=== PATIENT | male | born 2000 | race Caucasian/White ===

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

== ENCOUNTER 2020-05-11 00:53 | Emergency (ER) | payer OTHER ==
[2020-05-11 01:07] VITALS: BP 131/72; PULSE 94; TEMP 99.2; BMI 29.1
== END 2020-05-11 02:23 | disposition home or self-care (01) ==
LOC: JER 00:53
DX: L66.2 Folliculitis decalvans (principal)
CPT/HCPCS: 99284-25

== ENCOUNTER 2020-09-17 17:42 | Emergency (ER) | payer OTHER ==
[2020-09-17 18:00] VITALS: BP 116/67; PULSE 75; TEMP 98.8; BMI 26.3
[2020-09-17 19:10] LABS: BASO % 0.4 % (0-2.0); EOS % 4.9 % (0-4.5); HEMATOCRIT 53.1 % (35.4-49); LYMPH % 22.7 % (8-40); MCH 31.7 pg (25.7-33.7); MCHC 33.9 g/dl (32.0-35.9); MEAN CELL VOLUME 93.7 fl (80-96); MEAN PLT VOLUME 7.8 fl (7.5-11.1); MONO % 5.4 % (3.8-10.2); NEUT % 66.6 % (42.8-82.8); PLATELET COUNT 289 K/MM3 (134-434); RBC 5.67 M/mm3 (4.00-5.60); WHITE BLOOD COUNT 10.3 K/mm3 (4.0-10.0)
[2020-09-17 19:29] LABS: CHLORIDE 104 mmol/L (98-107); POTASSIUM 3.8 mmol/L (3.5-5.1); SODIUM 139 mmol/L (136-145)
[2020-09-17 19:32] LABS: ALBUMIN 4.8 g/dl (3.4-5.0); ANION GAP 6 MMOL/L (8-16); BLOOD UREA NITROGEN 14.8 mg/dL (7-18); CALCIUM 10.3 mg/dL (8.5-10.1); CO2 29 mmol/L (21-32); GLUCOSE,RANDOM 85 mg/dL (74-106)
[2020-09-17 19:34] LABS: SGPT/ALT 46 U/L (13-61)
[2020-09-17 19:36] LABS: CREATININE 0.9 mg/dL (0.55-1.3); SGOT/AST 22 U/L (15-37)
[2020-09-17 19:37] LABS: BILIRUBIN,TOTAL 0.7 mg/dL (0.2-1); TOT PROT 7.6 g/dl (6.4-8.2)
[2020-09-17 19:38] LABS: ALK PHOS 89 U/L (45-117)
== END 2020-09-17 20:52 | disposition home or self-care (01) ==
LOC: JER 17:42
DX: R07.9 Chest pain, unspecified (principal)
CPT/HCPCS: 36415; 71046-TC-FY; 80053; 82550; 84484; 85025; 93005; 93010; 99284-25; C9803; U0003; U0005

== ENCOUNTER 2020-12-02 12:34 | Emergency (ER) | payer OTHER ==
[2020-12-02 12:40] VITALS: BP 116/72; PULSE 88; TEMP 98.1; BMI 25.0
[2020-12-02] MEDS ORDERED: KETOROLAC TROMETHAMINE 60 MG/2 ML VIAL IVPB ONE (13:36)
[2020-12-02] MEDS ORDERED: ACETAMINOPHEN 1000 MG/100 ML VIAL (NON FORMULARY) IVPB ONE (13:36)
[2020-12-02] MEDS ORDERED: METOCLOPRAMIDE HCL INJECTION 10 MG/2 ML VIAL IVPB ONE (13:36)
[2020-12-02] MEDS ORDERED: SODIUM CHLORIDE 1,000 ML IV STA (13:36)
[2020-12-02] MEDS ORDERED: METOCLOPRAMIDE HCL INJECTION 10 MG/2 ML VIAL ONE (13:54)
[2020-12-02] MEDS ORDERED: KETOROLAC TROMETHAMINE 30 MG/1 ML VIAL ONE (13:54)
[2020-12-02] MEDS ORDERED: METHOCARBAMOL 500 MG TABLET PO ONE (15:23)
[2020-12-02] MEDS ORDERED: LIDOCAINE 5% TOPICAL PATCH TP ONE (15:26)
[2020-12-02] MEDS ORDERED: LIDOCAINE 5% TOPICAL PATCH ONE (15:28)
[2020-12-02] MEDS ORDERED: METHOCARBAMOL 500 MG TABLET ONE (15:28)
== END 2020-12-02 17:25 | disposition home or self-care (01) ==
LOC: JERFT 12:34
PROC: 3E033NZ Introduction of Analgesics, Hypnotics, Sedatives into Peripheral Vein, Percutaneous Approach (ICD-10-PCS; principal; 2020-12-02)
PROC: 3E033GC Introduction of Other Therapeutic Substance into Peripheral Vein, Percutaneous Approach (ICD-10-PCS; 2020-12-02)
PROC: 3E0333Z Introduction of Anti-inflammatory into Peripheral Vein, Percutaneous Approach (ICD-10-PCS; 2020-12-02)
PROC: 3E0337Z Introduction of Electrolytic and Water Balance Substance into Peripheral Vein, Percutaneous Approach (ICD-10-PCS; 2020-12-02)
DX: R51.9 Headache, unspecified (principal)
CPT/HCPCS: 99285-25; J0131

== ENCOUNTER 2021-08-16 22:43 | Emergency (ER) | payer OTHER ==
[2021-08-16 22:50] VITALS: BP 127/67; PULSE 84; TEMP 97.9; BMI 26.1
== END 2021-08-17 | disposition home or self-care (01) ==
LOC: JER 22:43
DX: L01.00 Impetigo, unspecified (principal)
CPT/HCPCS: 87070; 87186; 87205; 99281-25

== ENCOUNTER 2022-03-28 12:59 | Emergency (ER) | payer OTHER ==
[2022-03-28 13:09] VITALS: BP 111/66; PULSE 85; RESP 19; TEMP 97.8; BMI 26.6
[2022-03-28 14:28] LABS: PH,URINE 6.5 (5.0-8.0); URINE APPEARANCE CLEAR; URINE BILIRUBIN NEGATIVE (NEGATIVE); URINE COLOR YELLOW; URINE GLUCOSE (UA) NEGATIVE (NEGATIVE); URINE KETONE NEGATIVE (NEGATIVE); URINE LEUK ESTERASE NEGATIVE (NEGATIVE); URINE NITRITE NEGATIVE (NEGATIVE); URINE PROTEIN NEGATIVE (NEGATIVE)
== END 2022-03-28 14:55 | disposition home or self-care (01) ==
LOC: JERFT 12:59
DX: N48.1 Balanitis (principal)
CPT/HCPCS: 36415; 81003; 87086; 87491; 87591; 99283-25

== ENCOUNTER 2022-11-23 19:49 | Emergency (ER) | payer OTHER ==
[2022-11-23 19:53] VITALS: BP 123/76; PULSE 85; RESP 16; TEMP 98.3; BMI 27.4
[2022-11-23] MEDS ORDERED: LORATADINE 10 MG TABLET PO ONE (21:17)
[2022-11-23] MEDS ORDERED: LORATADINE 10 MG TABLET ONE (21:21)
== END 2022-11-23 21:47 | disposition home or self-care (01) ==
LOC: JERFT 19:49 → JER 19:49 → JERFT 21:47
DX: R21 Rash and other nonspecific skin eruption (principal)
CPT/HCPCS: 36415; 86780; 99283-25